=== PATIENT | male | born 1960 | race Caucasian/White ===

== ENCOUNTER 2021-04-28 10:31 | Emergency (ER) | payer BC ==
[~2021-04-28] VITALS: Ht 177.8 cm; Wt 136.4 kg
[2021-04-28 11:26] VITALS: TEMP 98.4
[2021-04-28 14:06] VITALS: BP 165/85; PULSE 59
== END 2021-04-28 14:19 | disposition home or self-care (01) ==
LOC: COL.ER 10:31
DX: U07.1 COVID-19 (principal); E66.01 Morbid (severe) obesity due to excess calories; I10 Essential (primary) hypertension; Z68.41 Body mass index [BMI] 40.0-44.9, adult
CPT/HCPCS: M0245